=== PATIENT | female | born 1960 | race Caucasian/White ===

== ENCOUNTER 2019-10-17 07:31 | Emergency (ER) | payer OTHER ==
[~2019-10-17] VITALS: Ht 154.9 cm; Wt 89.8 kg
[2019-10-17 07:31] VITALS: BP_SYST 153
--- NOTE | 2019-10-17 07:31 | NUR ---
TRIAGED AND BROUGHT BACK TO BED #1, REPORT GIVEN TO VIKRAM
--- NOTE | 2019-10-17 07:41 | NUR ---
DR CAZARES AT BEDSIDE FOR EVALUATION
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
--- NOTE | 2019-10-17 08:08 | NUR ---
TAKEN TO RADIOLOGY AMBULATORY
--- NOTE | 2019-10-17 08:17 | NUR ---
RETURNED FROM RADIOLOGY, PLACED BACK INTO BED #4
[2019-10-17 09:41] VITALS: BP_SYST 141
--- NOTE | 2019-10-17 09:42 | NUR ---
Patient given written and verbal discharge instructions and verbalizes understanding. ER MD discussed with patient the results and treatment provided. Patient in stable condition. ID arm band removed. Rx of NONE given. Patient educated on pain management and to follow up with PMD. Pain Scale 0/10. Opportunity for questions provided and answered. Medication side effect fact sheet provided.
== END 2019-10-17 09:42 | disposition home or self-care (01) ==
LOC: SED 07:31
DX: S30.1XXA Contusion of abdominal wall, initial encounter (principal); I10 Essential (primary) hypertension; E11.9 Type 2 diabetes mellitus without complications; E03.9 Hypothyroidism, unspecified; X58.XXXA Exposure to other specified factors, initial encounter; Y93.89 Activity, other specified; Y92.89 Other specified places as the place of occurrence of the external cause; Y99.8 Other external cause status
CPT/HCPCS: 99284

== ENCOUNTER 2022-06-16 12:06 | Inpatient (IN) | payer MEDICAID, OTHER ==
[~2022-06-16] VITALS: Ht 154.9 cm; Wt 103.4 kg
[2022-06-16 12:30] VITALS: BP_SYST 132
[2022-06-16 12:47] LABS: BASOPHILS % (AUTO) 0.3 % (0.0-2.0); EOSINOPHILS # (AUTO) 0.1 K/uL (0.0-0.4); EOSINOPHILS % (AUTO) 1.2 % (0.0-4.0); HEMATOCRIT 37.7 % (36-48); HEMOGLOBIN 12.4 g/dL (12.0-16.0); LYMPHOCYTES # (AUTO) 1.9 K/uL (1.0-5.5); LYMPHOCYTES % (AUTO) 23.8 % (20.5-51.5); MEAN CORPUSCULAR HEMOGLOBIN 29 pg (27-31); MEAN CORPUSCULAR HGB CONC 33 % (32-36); MEAN CORPUSCULAR VOLUME 87 fL (79.0-98.0); MONOCYTES # (AUTO) 0.7 K/uL (0.0-1.0); MONOCYTES % (AUTO) 8.6 % (1.7-9.3); NEUTROPHILS # (AUTO) 5.2 K/uL (1.8-7.7); NEUTROPHILS % (AUTO) 66.1 % (40.0-70.0); PLATELET COUNT (AUTO) 326 K/uL (130-430); RED BLOOD CELL COUNT(AUTO) 4.32 MIL/uL (4.2-6.2); RED CELL DISTRIBUTION WIDTH 14.8 % (9.0-15.0); WHITE BLOOD COUNT (AUTO) 7.9 K/uL (4.8-10.8)
[2022-06-16 13:02] LABS: CALCIUM 9.5 mg/dL (8.4-11.0); CREATININE 0.91 mg/dL (0.55-1.30)
[2022-06-16 13:06] LABS: ALBUMIN 3.4 g/dL (3.4-4.8); C-REACTIVE PROTEIN QUANT 8.4 mg/dL (0-0.5); PROTHROMBIN TIME 10.2 SECS (9.5-12.5); TOTAL BILIRUBIN 0.4 mg/dL (0.0-1.0)
--- NOTE | 2022-06-16 14:04 | NUR ---
Patient to ER bed H2 to gown for evaluation. Side rails up. Report given to KLEVER KEENE
[2022-06-16] MEDS ORDERED: ACETAMINOPHEN 325 MG TABLET PO PRN (14:15)
[2022-06-16] MEDS ORDERED: ALBUTEROL SULFATE 0.083% 2.5 MG/3 ML VIAL.NEB INH PRN (14:15)
[2022-06-16] MEDS ORDERED: ONDANSETRON HCL 4 MG/2 ML VIAL IVP PRN (14:15)
[2022-06-16] MEDS ORDERED: LORazepam 2 MG/ML VIAL IVP PRN (14:15)
--- NOTE | 2022-06-16 14:15 | NUR ---
ER at bedside examining patient.
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
--- NOTE | 2022-06-16 15:50 | NUR ---
Covid swab obtained and sent to lab
[2022-06-16] MEDS ORDERED: SIMV-343 PO (15:56)
[2022-06-16] MEDS ORDERED: ATEN50TA PO (15:56)
[2022-06-16] MEDS ORDERED: INDO-12 PO (15:56)
[2022-06-16] MEDS ORDERED: COLC0.6C3 PO (15:56)
[2022-06-16] MEDS ORDERED: ALLO-57 PO (15:56)
[2022-06-16] MEDS ORDERED: PIOG30TA71 PO (15:56)
--- NOTE | 2022-06-16 15:56 | NUR ---
Medication reconciliation completed with information provided by PATIENT. Any prior medication reconciliation on file was reviewed and corrected.
--- NOTE | 2022-06-16 16:49 | NUR ---
Admit bed requested Patient will be admitted to care of . Admitted to MED SURG unit. Diagnosis NEW ABDOMINAL MASS Inpatient (Yes or No) Y Observation (Yes or No) N Orientation concerns or request close to nursing station (Yes or No) N Covid Status NEG On vent or bipap N Isolation requirements N Needs a sitter N From Home (Yes or if No enter name of facility) Y Requires Dialysis (Yes or No) N Med Rec Completed (Yes of No) Y
[2022-06-16 18:46] LABS: BILIRUBIN,URINE NEGATIVE (NEGATIVE); BLOOD, URINE 3+ (NEGATIVE); CLARITY/URINE TURBID (CLEAR); COLOR,URINE RED (YELLOW); GLUCOSE,URINE NEGATIVE (NEGATIVE); KETONES,URINE 1+ (NEGATIVE); LEUKOCYTE ESTERASE ,URINE NEGATIVE (NEGATIVE); NITRITE, URINE POSITIVE (NEGATIVE); PROTEIN URINE 3+ (NEGATIVE)
[2022-06-16 18:53] LABS: RBC,URINE >100 /HPF (0-3); WBC,URINE 0-3 /HPF (0-3)
[2022-06-16 18:54] LABS: BACTERIA,URINE FEW /HPF (None Seen)
[2022-06-16] MEDS: NORMAL SALINE 5 ML DISP.SYRIN IVF SCH (22:07)
[2022-06-16] MEDS ORDERED: MAG-AL HYDROX/SIMETH 30 ML UDC PO ONE (23:30)
--- NOTE | 2022-06-16 23:57 | NUR ---
Patient will be admitted to care of DR. ROMERO. Admitted to MEDSURG unit. Will go to room 126A. Belongings list completed. Complete and up to date summary report printed. SBAR report to be given at bedside with opportunity for questions.
[2022-06-17] VITALS: BP_SYST 153
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
[2022-06-17 00:30] VITALS: BP_SYST 153
[2022-06-17] MEDS: HYDROcodone/ACETAMIN 10-325 MG TAB PO PRN ×2 (01:44→09:18)
--- NOTE | 2022-06-17 04:14 | NUR ---
CONSULTATION PAGED/CALLED [phone] Reason for Consultation: abd mass Person Who was Notified: Siddharth Consulting Physician: Dr. Baker Community Support Professional Specialty: surgeon Ordering Physician: Dr. Burton
[2022-06-17 05:45] LABS: BASOPHILS % (AUTO) 0.4 % (0.0-2.0); EOSINOPHILS # (AUTO) 0.1 K/uL (0.0-0.4); HEMATOCRIT 34.3 % (36-48); HEMOGLOBIN 11.2 g/dL (12.0-16.0); LYMPHOCYTES % (AUTO) 28.4 % (20.5-51.5); MEAN CORPUSCULAR HEMOGLOBIN 28 pg (27-31); MEAN CORPUSCULAR HGB CONC 33 % (32-36); MEAN CORPUSCULAR VOLUME 87 fL (79.0-98.0); MONOCYTES # (AUTO) 0.8 K/uL (0.0-1.0); MONOCYTES % (AUTO) 11.4 % (1.7-9.3); NEUTROPHILS % (AUTO) 57.8 % (40.0-70.0); PLATELET COUNT (AUTO) 280 K/uL (130-430); RED BLOOD CELL COUNT(AUTO) 3.94 MIL/uL (4.2-6.2); RED CELL DISTRIBUTION WIDTH 15.3 % (9.0-15.0)
[2022-06-17] MEDS: NORMAL SALINE 5 ML DISP.SYRIN IVF SCH ×3 (05:46→21:08)
[2022-06-17 06:21] LABS: CALCIUM 8.7 mg/dL (8.4-11.0); CREATININE 0.7 mg/dL (0.55-1.30); TOTAL BILIRUBIN 0.4 mg/dL (0.0-1.0)
--- NOTE | 2022-06-17 06:53 | NUR ---
This movie writer spoke with consulted surgeon. He was provided a brief overview of the reason for the consult. No noew orders at this time.
--- NOTE | 2022-06-17 07:38 | NUR ---
Handoff has been given to Arabella
[2022-06-17] MEDS: ENOXAPARIN SODIUM 40 MG/0.4 ML SYRINGE SUBCUT SCH (09:00)
[2022-06-17 09:11] VITALS: BP_SYST 144
[2022-06-17 12:30] VITALS: BP_SYST 137
[2022-06-17 16:45] VITALS: BP_SYST 140
[2022-06-17 20:00] VITALS: BP_SYST 134
[2022-06-17] MEDS: ACETAMINOPHEN 325 MG TABLET PO PRN (21:32)
[2022-06-18] MEDS: NORMAL SALINE 5 ML DISP.SYRIN IVF SCH ×3 (05:14→20:31)
[2022-06-18] MEDS ORDERED: LIDOCAINE 1%, 20 ML MDV 20 ML ONE (08:11)
[2022-06-18] MEDS ORDERED: MIDAZOLAM HCL 5 MG/5 ML VIAL ONE (08:15)
[2022-06-18 08:26] VITALS: BP_SYST 155
[2022-06-18] MEDS: ENOXAPARIN SODIUM 40 MG/0.4 ML SYRINGE SUBCUT SCH (09:00)
--- NOTE | 2022-06-18 10:18 | NUR ---
PT TAKEN BY WHEELCHAIR FOR A PROCEDURE - US BIOPSY ABDOMEN AT AROUND 0930.
[2022-06-18] MEDS ORDERED: BISACODYL 10 MG/SUPPOSITORY RC PRN (11:45)
[2022-06-18] MEDS: traMADol HCL HCL 50 MG TABLET (ULTRAM) PO PRN (12:21)
[2022-06-18] MEDS: ACETAMINOPHEN 325 MG TABLET PO PRN (13:52)
[2022-06-18] MEDS ORDERED: TRAM50TA2 PO (15:33)
[2022-06-18 16:31] VITALS: BP_SYST 141
[2022-06-18 20:10] VITALS: BP_SYST 143
[2022-06-18] MEDS: HYDROcodone/ACETAMIN 10-325 MG TAB PO PRN (20:28)
[2022-06-19 00:10] VITALS: BP_SYST 140
[2022-06-19] MEDS: NORMAL SALINE 5 ML DISP.SYRIN IVF SCH (05:50)
[2022-06-19] MEDS: HYDROcodone/ACETAMIN 10-325 MG TAB PO PRN (05:50)
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
[2022-06-19 08:11] VITALS: BP_SYST 130
[2022-06-19] MEDS: ENOXAPARIN SODIUM 40 MG/0.4 ML SYRINGE SUBCUT SCH (09:00)
[2022-06-19] MEDS: traMADol HCL HCL 50 MG TABLET (ULTRAM) PO PRN (09:42)
[2022-06-19 12:09] VITALS: BP_SYST 145
[2022-06-19 12:50] VITALS: BP_SYST 145
--- NOTE | 2022-06-19 14:37 | NUR ---
D/C Patient Patient given medication reconciliation form and D/C instructions. Exit Care provided. Patient verbalized understanding. MD discussed with patient the results and treatment provided. Ambulatory with steady gait for discharge to home. Patient in stable condition, ID band removed. IV catheter removed, intact and dressing applied, no active bleeding. Rx of given. Patient educated on pain management. All belongings sent with patient.
[2022-06-19 16:00] VITALS: BP_SYST 145
== END 2022-06-19 14:47 | disposition home or self-care (01) | DRG 530 ==
LOC: SED 12:06 → SMU 14:11
PROVIDERS: ADMIT Family Medicine; ATTEND Family Medicine
PROC: 0JB83ZX Excision of Abdomen Subcutaneous Tissue and Fascia, Percutaneous Approach, Diagnostic (ICD-10-PCS; principal; 2022-06-18)
DX: C56.2 Malignant neoplasm of left ovary (principal); E03.9 Hypothyroidism, unspecified; N93.8 Other specified abnormal uterine and vaginal bleeding; E11.9 Type 2 diabetes mellitus without complications; I10 Essential (primary) hypertension; M10.9 Gout, unspecified; Z79.899 Other long term (current) drug therapy
CPT/HCPCS: 36415; 76376; 76700-TC; 76857; 80053; 81000; 82150; 83605; 83690; 85025; 85610-TC; 85730-TC; 86140; 88304; 88305; 88341; 88342; 94760; 99285; J1650; J2001; J2250